=== PATIENT | female | born 1975 | race Caucasian/White ===

== ENCOUNTER 2018-04-29 13:51 | Emergency (ER) | payer OTHER ==
[~2018-04-29] VITALS: Ht 165.1 cm; Wt 81.6 kg
--- NOTE | 2018-04-29 13:56 | ED SKIN/ALLERGY COMPLAINT ---
History of Present Illness General Chief Complaint: Suture Removal/Wound Recheck Stated Complaint: SUTURE REMOVAL Source: patient, old records Exam Limitations: no limitations Vital Signs & Intake/Output Vital Signs & Intake/Output Vital Signs Date Time Temp Pulse Resp B/P B/P Pulse O2 O2 Flow FiO2 Mean Ox Delivery Rate 04/29 1400 99 Room Air 04/29 1357 98.1 88 18 150/99 100 Room Air Allergies Coded Allergies: No Known Allergies (04/20/18) Triage Nurses Notes Reviewed? yes Onset: Gradual Duration: week(s): Timing: recent history Severity: moderate Location: left thumb HPI: 43yo female presents to ED for suture removal. Patient sustained laceration to left thumb 9 days ago and had stitches placed here in the ED. She denies symptoms of skin infection. Past History Travel History Traveled to [place] past 21 day No Medical History Any Pertinent Medical History? see below for history Cardiovascular: hypertension, HIGH CHOLESTEROL Surgical History Surgical History: none Psychosocial History What is your primary language Irish Family History Hx Contributory? No Review of Systems Review of Systems Constitutional: Reports: no symptoms. EENTM: Reports: no symptoms. Respiratory: Reports: no symptoms. Cardiovascular: Reports: no symptoms. GI: Reports: no symptoms. Genitourinary: Reports: no symptoms. Musculoskeletal: Reports: see HPI. Skin: Reports: see HPI. Neurological/Psychological: Reports: no symptoms. Hematologic/Endocrine: Reports: no symptoms. Immunologic/Allergic: Reports: no symptoms. All Other Systems: Reviewed and Negative Physical Exam Physical Exam General Appearance: well developed/nourished, no apparent distress, alert, awake Head: atraumatic, normal appearance Eyes: Bilateral: normal appearance. Ears, Nose, Throat: hearing grossly normal Neck: normal inspection, supple, full range of motion Respiratory: no respiratory distress Back: normal inspection, normal range of motion Extremities: healing laceration to distal left thumb with [address] Neurologic/Psych: awake, alert, oriented x 3 Skin: healing laceration Progress Differential Diagnosis: abscess/cellulitis, suture removal, wound check Plan of Care: Sutures ready to remove today. Wound is healing appropriately. Patient reeducated on symptoms of infection. She agrees the plan of care. Departure Departure Disposition: HOME OR SELF CARE Condition: Stable Clinical Impression Primary Impression: Visit for suture removal Referrals: Noa Guardado (PCP/Family) Departure Forms: Customer Survey General Discharge Information
[2018-04-29 13:57] VITALS: BP 150/99
== END 2018-04-29 14:02 ==
LOC: ERH 13:51
DX: Z48.02 Encounter for removal of sutures (principal)